=== PATIENT | female | born 1985 | race Caucasian/White ===

== ENCOUNTER 2016-07-25 10:35 | Emergency (ER) | payer OTHER ==
[~2016-07-25] VITALS: Ht 162.6 cm; Wt 95.5 kg
[~2016-07-25 10:35] MED LIST: ADVIL200 M1 PO; CHROMAGEN,1 CAPSULE PO; Flintstones PO; Levaquin PO; Motrin PO; NOHOMEMEDS; PEN-VEE K,VEET500 MG PO; PERCOCET 5/31 TABLET PO
[2016-07-25 11:03] VITALS: BP 121/80
[2016-07-25] MEDS ORDERED: NAPROXEN500 MG PO (11:21)
[2016-07-25] MEDS ORDERED: PEN-VEE K,VEET500 MG PO (11:21)
== END 2016-07-25 11:33 | disposition home or self-care (01) ==
LOC: EME 10:35
PROC: 3E0T3BZ Introduction of Anesthetic Agent into Peripheral Nerves and Plexi, Percutaneous Approach (ICD-10-PCS; principal; 2016-07-25)
DX: S02.5XXA Fracture of tooth (traumatic), initial encounter for closed fracture (principal)
CPT/HCPCS: 99281; 99283

== ENCOUNTER 2017-11-20 12:42 | Emergency (ER) | payer OTHER ==
[~2017-11-20] VITALS: Ht 162.6 cm; Wt 89.6 kg
[~2017-11-20 12:42] MED LIST changes: +NAPROXEN500 MG PO
[2017-11-20 13:11] LABS: HEMOGLOBIN 15.6 G/DL (11.9-15.5); MCH 31.6 PG (29.0-34.0); MCHC 35.5 G/DL (30.0-36.0); MCV 89.1 FL (83-99); RBC DIS.WIDTH-CV 12.4 % (11.8-14.6); RBC DIS.WIDTH-SD 40.9 % (39-53); RED BLOOD COUNT 4.94 M/uL (3.80-5.20); WHITE BLOOD COUNT 14.7 K/uL (4.1-10.2)
[2017-11-20 13:16] LABS: ALBUMIN 4.6 g/dL (3.2-4.8); CHLORIDE 105 mEq/L (99-109); POTASSIUM 3.9 mEq/L (3.7-5.4); SODIUM 139 mEq/L (136-147)
[2017-11-20 13:19] LABS: GLUCOSE 89 mg/dL (70-99); TOTAL PROTEIN 7.9 g/dL (6.4-8.3)
[2017-11-20 13:21] LABS: TOTAL BILIRUBIN 0.4 mg/dL (0.0-1.0)
[2017-11-20 13:22] LABS: ALKALINE PHOSPHATASE 90 IU/L (3-129); CREATININE 0.8 mg/dL (0.6-1.3); GFR ESTIMATE (CALCULATED) > 59 mL/min/
[2017-11-20 13:23] LABS: UREA NITROGEN (BUN) 11 mg/dL (9-23)
[2017-11-20 13:24] LABS: AST (GOT) 18 IU/L (2-34)
[2017-11-20 13:25] LABS: ALT (GPT) 27 IU/L (3-49)
[2017-11-20 13:33] LABS: QUANTITATIVE HCG < 4.0 MIU/ML
[2017-11-20 13:46] LABS: APPEARANCE CLOUDY ((CLEAR)); BILIRUBIN NEGATIVE; BLOOD NEGATIVE; COLOR YELLOW ((YELLOW)); GLUCOSE (STRIP) NEGATIVE; KETONES 5; LEUKOCYTES MODERATE; NITRITE NEGATIVE; PROTEIN (STRIP) NEGATIVE; SPECIFIC GRAVITY 1.021 (1.000-1.030); UROBILINOGEN 0.2 MG/DL (0.2-1.0)
[2017-11-20 13:52] LABS: BACTERIA RARE /HPF; EPITHELIAL CELLS 3+ /HPF; MUCUS TRACE /LPF; RED BLOOD CELLS 0-5 /HPF (0-5); UCUL ADDED? NO; WHITE BLOOD CELLS 0-5 /HPF (0-5)
[2017-11-20] MEDS ORDERED: CIPRO500 MG PO (14:51)
[2017-11-20] MEDS ORDERED: ZOFRAN ODT4 MG PO (14:51)
[2017-11-20 15:06] VITALS: BP 126/74
[2017-11-20 17:35] LABS: PLATELET COUNT 293 K/uL (156-360)
== END 2017-11-20 15:07 | disposition home or self-care (01) ==
LOC: EME 12:42
DX: N39.0 Urinary tract infection, site not specified (principal); R11.0 Nausea; F41.9 Anxiety disorder, unspecified; F32.9 Major depressive disorder, single episode, unspecified; F31.9 Bipolar disorder, unspecified; F17.200 Nicotine dependence, unspecified, uncomplicated; Z98.890 Other specified postprocedural states; Z88.2 Allergy status to sulfonamides; Z91.030 Bee allergy status; Z91.018 Allergy to other foods; Z88.8 Allergy status to other drugs, medicaments and biological substances
CPT/HCPCS: 74176; 80053; 81003; 84702; 85027; 99281; 99284; J1885; J2405; J7030